=== PATIENT | male | born 1985 | race Caucasian/White ===

== ENCOUNTER 2023-11-01 16:03 | Outpatient (CLI) | payer BC, SELFPAY | END 2023-11-01 16:04 | disposition home or self-care (01) | PROVIDERS: PCP Emergency Medicine; Visit Provider Emergency Medicine | DX: I10 Essential (primary) hypertension (principal); R74.01 Elevation of levels of liver transaminase levels | CPT/HCPCS: 80048; 80076 ==

== ENCOUNTER 2023-11-29 15:09 | Outpatient (CLI) | payer BC, SELFPAY | END 2023-11-29 15:10 | disposition home or self-care (01) | LOC: LKVREF 15:10 | PROVIDERS: PCP Emergency Medicine; Visit Provider Emergency Medicine | DX: I10 Essential (primary) hypertension (principal); E66.9 Obesity, unspecified; R74.01 Elevation of levels of liver transaminase levels | CPT/HCPCS: 80048 ==

== ENCOUNTER 2023-12-07 08:34 | Outpatient (CLI) | payer BC, SELFPAY ==
--- NOTE | 2023-12-07 09:00 | CRLHL7_ITS ---
For Patients: As a result of the Century Cures Act, medical imaging exams and procedure reports are released immediately into your electronic medical record. You may view this report before your referring provider. If you have questions, please contact your health care provider. INDICATION: Elevated liver function tests COMPARISON: none TECHNIQUE: Real time pham scale imaging and color Doppler analysis was performed of the right upper quadrant. FINDINGS: The patient`s liver is of normal size and has diffusely increased echogenicity. There is a normal appearance of the hepatic IVC and proximal abdominal aorta. There is no evidence of ascites. The gallbladder is of normal size and there is no evidence of intraluminal stones or sludge. The gallbladder wall measures 2.3 mm in thickness. The common bile duct is of normal size and measures 3.7 mm in diameter at the level of the dave hepatis. The visualized pancreas appears somewhat echogenic. There is no evidence of a stone or hydronephrosis within the right kidney. The right kidney measures 11.0 cm in length. IMPRESSION: Moderate diffuse hepatic steatosis. No ascites. Normal gallbladder. Dictated by Fareed Menezes MD @ 12/10/2023 4:18:37 PM (Electronically Signed)
== END 2023-12-07 08:35 | disposition home or self-care (01) ==
LOC: US 08:35
PROVIDERS: PCP Emergency Medicine; Visit Provider Emergency Medicine
DX: R74.01 Elevation of levels of liver transaminase levels (principal); K76.0 Fatty (change of) liver, not elsewhere classified
CPT/HCPCS: 76705

== ENCOUNTER 2024-03-19 15:05 | Outpatient (CLI) | payer OTHER, SELFPAY | END 2024-03-19 15:06 | disposition home or self-care (01) | LOC: NFLDREF 03-24 02:35 | PROVIDERS: PCP Emergency Medicine; Referring Provider Emergency Medicine; Visit Provider Emergency Medicine | DX: K76.0 Fatty (change of) liver, not elsewhere classified (principal); R74.01 Elevation of levels of liver transaminase levels | CPT/HCPCS: 80076 ==

== ENCOUNTER 2024-12-25 13:37 | Outpatient (CLI) | payer OTHER, SELFPAY | END 2024-12-25 13:38 | disposition home or self-care (01) | LOC: NFLDREF 12-29 06:18 | PROVIDERS: Visit Provider Family Medicine | DX: Z00.00 Encounter for general adult medical examination without abnormal findings (principal); Z13.6 Encounter for screening for cardiovascular disorders | CPT/HCPCS: 80053; 80061 ==